=== PATIENT | female | born 1960 | race Caucasian/White ===

== ENCOUNTER → 2019-12-16 11:51 | Outpatient (BNVA) | payer MEDICARE, MEDICAID, SELFPAY | PROVIDERS: Family Provider Nurse Practitioner; PCP Nurse Practitioner; Visit Provider Nurse Practitioner | DX: F43.21 Adjustment disorder with depressed mood (principal); E78.2 Mixed hyperlipidemia; M62.40 Contracture of muscle, unspecified site; H61.22 Impacted cerumen, left ear | CPT/HCPCS: 80053; 80061; 84443; 85025 ==

== ENCOUNTER → 2020-08-30 11:19 | Outpatient (BNVA) | payer MEDICARE, MEDICAID, SELFPAY | PROVIDERS: Family Provider Nurse Practitioner; PCP Nurse Practitioner; Visit Provider Nurse Practitioner | DX: E78.2 Mixed hyperlipidemia (principal); E04.9 Nontoxic goiter, unspecified; M24.50 Contracture, unspecified joint; F43.21 Adjustment disorder with depressed mood; B02.29 Other postherpetic nervous system involvement | CPT/HCPCS: 80053; 80061 ==

== ENCOUNTER 2020-09-17 13:21 | Outpatient (CLI) | payer MEDICARE, MEDICAID, SELFPAY ==
--- NOTE | 2020-09-17 14:15 | US_ITS ---
WS: [id number] THYROID ULTRASOUND REASON FOR EXAM: E04.9 - Nontoxic goiter, unspecified TECHNIQUE: Grayscale and Doppler ultrasound examination of the thyroid gland. FINDINGS: RIGHT: Right thyroid gland measures 3.4 cm x 1.3 cm x 1.4 cm. Right thyroid volume equals 3.2 ccm3. No nodul e identified. LEFT: Left thyroid gland measures 2.7 cm x 1.0 cm x 0.9 cm. Left thyroid volume equals 1.2 ccm3. No nodule identified. Thyroid isthmus: 0.2 mm. No nodule identified. There are several small nodes adjacent to the thyroid gland measuring from 6 to 8 mm in long axis and 3 to 4 mm in short axis. With a fatty hilus is readily identifiable within these nodes. US/US thyroid [id number] IMPRESSION: Normal thyroid gland. The lymph nodes are not likely to be significant due to their small short axis dimensions and the well-defined fatty hilus.
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
== END 2020-09-17 13:22 | disposition home or self-care (01) ==
LOC: US 13:22
PROVIDERS: PCP Nurse Practitioner; Visit Provider Nurse Practitioner
DX: E04.9 Nontoxic goiter, unspecified (principal); Z12.31 Encounter for screening mammogram for malignant neoplasm of breast
CPT/HCPCS: 76536; 77067

== ENCOUNTER → 2020-12-20 10:24 | Outpatient (BNVA) | payer MEDICARE, MEDICAID, SELFPAY | PROVIDERS: PCP Nurse Practitioner; Visit Provider Nurse Practitioner | DX: E78.2 Mixed hyperlipidemia (principal); F43.21 Adjustment disorder with depressed mood; M24.50 Contracture, unspecified joint | CPT/HCPCS: 80053; 80061; 84443 ==

== ENCOUNTER → 2021-06-16 09:39 | Outpatient (BNVA) | payer MEDICARE, MEDICAID, SELFPAY | PROVIDERS: PCP Nurse Practitioner; Visit Provider Nurse Practitioner | DX: I10 Essential (primary) hypertension (principal); F43.21 Adjustment disorder with depressed mood; M24.50 Contracture, unspecified joint; E78.2 Mixed hyperlipidemia; B02.29 Other postherpetic nervous system involvement | CPT/HCPCS: 80053; 80061; 84443 ==

== ENCOUNTER → 2021-09-15 09:55 | Outpatient (BNVA) | payer MEDICARE, MEDICAID, SELFPAY | PROVIDERS: PCP Nurse Practitioner; Visit Provider Nurse Practitioner | DX: I10 Essential (primary) hypertension (principal); F43.21 Adjustment disorder with depressed mood; M24.50 Contracture, unspecified joint; E78.2 Mixed hyperlipidemia; B02.29 Other postherpetic nervous system involvement; R74.8 Abnormal levels of other serum enzymes | CPT/HCPCS: 80053 ==

== ENCOUNTER 2021-09-21 13:33 | Outpatient (CLI) | payer MEDICARE, MEDICAID, SELFPAY ==
--- NOTE | 2021-09-21 13:43 | MM_ITS ---
WS: [id number] BILATERAL DIGITAL SCREENING MAMMOGRAPHY WITH CAD CLINICAL INFORMATION: Z12.39 - Encounter for other screening for malignant neop... HISTORY: Screening mammogram. No current complaints. COMPARISON: September 17, 2020 TECHNIQUE: Bilateral CC and MLO views. FINDINGS: Scattered fibroglandular densities bilaterally. No suspicious focal mass, asymmetry, calcifications, or architectural distortion. No evidence of malignancy. MM/[id number] IMPRESSION: BI-RADS: 1-Negative FOLLOW UP: 1 Year Follow-up Recommend return to annual screening mammography.
== END 2021-09-21 13:34 | disposition home or self-care (01) ==
PROVIDERS: PCP Nurse Practitioner; Visit Provider Nurse Practitioner
DX: Z12.31 Encounter for screening mammogram for malignant neoplasm of breast (principal)
CPT/HCPCS: 77067

== ENCOUNTER → 2022-04-11 08:57 | Outpatient (BNVA) | payer MEDICARE, MEDICAID, SELFPAY | PROVIDERS: PCP Nurse Practitioner; Visit Provider Nurse Practitioner | DX: I10 Essential (primary) hypertension (principal) | CPT/HCPCS: 80053; 80061; 84443; 85025 ==

== ENCOUNTER 2022-08-01 01:00 | Outpatient (CLI) | payer MEDICARE, MEDICAID, SELFPAY | END 2022-08-01 23:00 | disposition home or self-care (01) | LOC: RAD 08-07 23:16 | PROVIDERS: PCP Nurse Practitioner; Visit Provider Nurse Practitioner | DX: R74.8 Abnormal levels of other serum enzymes (principal) | CPT/HCPCS: 80053; 86705; 86706; 86709; 86803; 87340 ==

== ENCOUNTER 2022-10-13 12:57 | Outpatient (CLI) | payer MEDICARE, MEDICAID, SELFPAY ==
--- NOTE | 2022-10-13 13:12 | MM_ITS ---
WS: [id number] BILATERAL 2D TOMOSYNTHESIS DIGITAL SCREENING MAMMOGRAPHY WITH CAD CLINICAL INFORMATION: SCREENING HISTORY: Screening mammogram. No current complaints. COMPARISON: 2020. TECHNIQUE: Bilateral CC and MLO views. FINDINGS: Scattered fibroglandular densities bilaterally. No suspicious focal mass, asymmetry, calcifications, or architectural distortion. No evidence of malignancy. Vascular calcification MM/[id number] IMPRESSION: BI-RADS: 2-Benign FOLLOW UP: 1 Year Follow-up Recommend return to annual screening mammography.
--- NOTE | 2022-10-13 13:13 | US_ITS ---
WS: [id number] ULTRASOUND ABDOMEN LIMITED CLINICAL INFORMATION: INCREASED LIVER ENLIMES FINDINGS: Technically difficult study due to body habitus. Liver Size: Mild hepatomegaly Craniocaudal length: 15.3 cm. Echogenicity: Coarse Surface nodularity: None. Mass (size and location): None. Bile ducts Intrahepatic ducts: Normal. Common bile duct diameter: 0.6 cm. Gallbladder Shadowing gallbladder calculi measuring up to 3.0 cm Gallstones: Present Gallbladder sludge: None. Gallbladder wall thickening: None. Pericholecystic fluid: None. Sonographic Ramirez sign: Absent. Pancreas Not well visualized Right kidney: Normal. Hydronephrosis: None. Size: 8.9 cm x 4.0 cm x 4.7 cm. Abdominal aorta and IVC Visualized portions are normal. Ascites: None. US/US liver [id number] IMPRESSION: Technically difficult study due to body habitus. 1. Mild hepatomegaly with coarse hepatic echogenicity likely due to fatty infi ltration. Recommend correlation with liver function tests. 2. Shadowing Gallbladder calculi. 3. No gallbladder wall thickening or pericholecystic fluid. 4. Common bile duct slightly prominent within normal limits. 5. No hydronephrosis in RIGHT kidney.
== END 2022-10-13 12:58 | disposition home or self-care (01) ==
LOC: RAD 12:58
PROVIDERS: PCP Nurse Practitioner; Visit Provider Nurse Practitioner
DX: Z12.31 Encounter for screening mammogram for malignant neoplasm of breast (principal); R74.8 Abnormal levels of other serum enzymes; R16.0 Hepatomegaly, not elsewhere classified
CPT/HCPCS: 76705; 77063; 77067

== ENCOUNTER → 2022-10-24 08:47 | Outpatient (BNVA) | payer MEDICARE, MEDICAID, SELFPAY | PROVIDERS: PCP Nurse Practitioner; Visit Provider Nurse Practitioner | DX: I10 Essential (primary) hypertension (principal) | CPT/HCPCS: 80053; 80061; 81000; 84443 ==

== ENCOUNTER → 2022-11-15 09:17 | Outpatient (BNVA) | payer MEDICARE, MEDICAID, SELFPAY | PROVIDERS: PCP Nurse Practitioner; Visit Provider Nurse Practitioner | DX: M17.12 Unilateral primary osteoarthritis, left knee (principal) | CPT/HCPCS: 73562 ==

== ENCOUNTER → 2022-12-18 13:11 | Outpatient (BNVA) | payer MEDICARE, MEDICAID, SELFPAY | PROVIDERS: PCP Nurse Practitioner; Referring Provider Nurse Practitioner; Visit Provider Student in an Organized Health Care Education/Training Program | DX: M17.12 Unilateral primary osteoarthritis, left knee (principal) | CPT/HCPCS: 20610; 73560; 73565; 99204; J3301 ==

== ENCOUNTER → 2023-05-11 09:52 | Outpatient (BNVA) | payer MEDICARE, MEDICAID, SELFPAY | PROVIDERS: PCP Nurse Practitioner; Visit Provider Nurse Practitioner | DX: E88.81 Metabolic syndrome and other insulin resistance (principal); E03.9 Hypothyroidism, unspecified; E78.2 Mixed hyperlipidemia; I10 Essential (primary) hypertension; M24.50 Contracture, unspecified joint; N18.30 Chronic kidney disease, stage 3 unspecified; B02.29 Other postherpetic nervous system involvement; F43.21 Adjustment disorder with depressed mood | CPT/HCPCS: 80053; 80061; 81000; 84443 ==

== ENCOUNTER 2023-11-23 08:37 | Emergency (ER) | payer MEDICARE, MEDICAID, SELFPAY ==
[2023-11-23 08:37] VITALS: BP 152/98; PULSE 99; RESP 16; TEMP 36.7; O2SAT 100
--- NOTE | 2023-11-23 08:46 | XR_ITS ---
WS: [id number] Right knee, 3 views, 11/23/2023 Clinical Data: pain Comparison: AP view both knees, left knee, 12/18/2022. Findings: There is minimal narrowing of the medial and lateral joint spaces. No large osteophytes are seen. The posterior right patella shows minimal irregularity. There are no fractures or dislocations. The soft tissues are normal. Impression: Questionable narrowing of the medial and lateral joint spaces of the right knee. Kellgren-Everardo Classification: grade 1 (doubtful): doubtful joint space narrowing and possible ost eophytic lipping
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
[2023-11-23 09:25] VITALS: BP 144/106; PULSE 102; RESP 16; O2SAT 97
== END 2023-11-23 09:36 | disposition home or self-care (01) ==
PROVIDERS: Emergency Provider Family Medicine; PCP Nurse Practitioner
DX: M25.561 Pain in right knee (principal); Z77.22 Contact with and (suspected) exposure to environmental tobacco smoke (acute) (chronic); N18.30 Chronic kidney disease, stage 3 unspecified; E78.2 Mixed hyperlipidemia
CPT/HCPCS: 73562; 99283